=== PATIENT | male | born 1955 | race African-American/Black ===

== ENCOUNTER 2016-10-06 11:11 | Day surgery (SDC) | payer MEDICAID ==
[2016-09-29 12:48] LABS: HEMATOCRIT 35.2 % (37.9-51.0); HEMOGLOBIN 12.1 g/dL (13.5-17.0); HGB HCT DIFFERENCE 1.1; MEAN CORPUSCULAR HEMOGLOBIN 26.3 pg (27.0-33.4); MEAN CORPUSCULAR HGB CONC 34.4 g/dL (32.0-36.0); MEAN CORPUSCULAR VOLUME 77 fl (80-97); RED CELL DISTRIBUTION WIDTH 24.8 % (11.5-14.0); WHITE BLOOD COUNT 4.4 10^3/uL (4.0-10.5)
[2016-09-29 13:03] LABS: ANION GAP 13 (5-19); BLOOD UREA NITROGEN 11 mg/dL (7-20); CALCIUM 9.9 mg/dL (8.4-10.2); CARBON DIOXIDE 27 mmol/L (22-30); CHLORIDE 104 mmol/L (98-107); CREATININE RESULT 0.78 mg/dL (0.52-1.25); GLUCOSE 78 mg/dL (75-110); POTASSIUM 4.4 mmol/L (3.6-5.0); SODIUM 143.6 mmol/L (137-145)
[~2016-10-06 11:11] MED LIST: GLYCOPYRROLATE INJ 0.4 MG/2 ML VIAL ONE; LACTATED RINGERS 1000 ML IV PRN; LIDOCAINE 2% INJ-PF (20 MG/ML) 10 ML AMPUL ONE; METOCLOPRAMIDE HCL INJ/PF 10 MG/2 ML SDV ONE; METRONIDAZOLE 500 MG/NS RTU 100 ML IV PRN; ONDANSETRON HCL INJ/PF 4 MG/2 ML SDV ONE
[2016-10-06 11:55] LABS: PROTHROMBIN TIME 12.9 SEC (11.4-15.4)
[2016-10-06 11:56] LABS: PARTIAL THROMBOPLASTIN TIME 32.6 SEC (23.5-35.8)
[2016-10-06] MEDS ORDERED: BUPIVACAINE HCL 0.25 % INJ/PF (2.5 MG/1 ML) 30 ML VIAL ONE (12:38)
[2016-10-06] MEDS ORDERED: LIDOCAINE 0.5%/EPINEPHRINE INJ 50 ML VIAL ONE (12:39)
[2016-10-06] MEDS ORDERED: LIDOCAINE 2% JELLY 30 ML TUBE ONE (12:41)
[2016-10-06] MEDS ORDERED: PHENYLEPHRINE HCL 1 EACH SUPP.RECT PR ONE (12:41)
[2016-10-06] MEDS ORDERED: ALBUTEROL SULFATE 0.083% NEB 2.5 MG/3 ML AMPUL NEB ONE (13:24)
[2016-10-06 14:16] LABS: HEMATOCRIT 34.5 % (37.9-51.0); HEMOGLOBIN 11.5 g/dL (13.5-17.0); MEAN CORPUSCULAR HEMOGLOBIN 26.2 pg (27.0-33.4); MEAN CORPUSCULAR HGB CONC 33.2 g/dL (32.0-36.0); MEAN CORPUSCULAR VOLUME 79 fl (80-97); RED BLOOD COUNT 4.37 10^6/uL (4.35-5.55); WHITE BLOOD COUNT 5.3 10^3/uL (4.0-10.5)
[2016-10-06] MEDS ORDERED: FENTANYL CITRATE INJ/PF 100 MCG/2 ML AMPUL ONE (15:37)
[2016-10-06] MEDS ORDERED: MIDAZOLAM 2 MG/2 ML INJ ONE (15:38)
[2016-10-06] MEDS ORDERED: ACETAMINOPHEN 100 ML IV ONE (15:38)
[2016-10-06] MEDS ORDERED: PROPOFOL INJ 200 MG/20 ML VIAL IV ONE (15:38)
[2016-10-06] MEDS ORDERED: MEPERIDINE HCL/PF INJ 25 MG/1 ML DISP.SYRIN IV PRN (16:52)
[2016-10-06] MEDS ORDERED: DIPHENHYDRAMINE HCL 50 MG/ML VIAL IV PRN (16:52)
[2016-10-06] MEDS ORDERED: PROMETHAZINE HCL INJ 25 MG/1 ML VIAL IV PRN ×2 (16:52)
[2016-10-06] MEDS ORDERED: OXYCODONE-ACETAMINOPHEN 5-325 MG TABLET PO PRN ×2 (16:52)
[2016-10-06] MEDS ORDERED: MORPHINE SULFATE 10 MG/ML INJ IV PRN (16:52)
[2016-10-06] MEDS ORDERED: FENTANYL CITRATE INJ/PF 100 MCG/2 ML AMPUL IV PRN ×3 (16:52)
[2016-10-06] MEDS ORDERED: ONDANSETRON HCL INJ/PF 4 MG/2 ML SDV IV PRN (18:15)
[2016-10-06] MEDS: MORPHINE SULFATE 10 MG/ML INJ IV PRN (20:15)
[2016-10-06] MEDS: HYDROMORPHONE HCL INJ/PF 2 MG/ML AMPULE IV PRN (21:28)
[2016-10-06] MEDS: METOPROLOL TARTRATE 50 MG TABLET PO SCH (21:29)
[2016-10-07] MEDS: HYDROMORPHONE HCL INJ/PF 2 MG/ML AMPULE IV PRN ×2 (06:02→13:33)
[2016-10-07] MEDS: MORPHINE SULFATE 10 MG/ML INJ IV PRN (08:43)
[2016-10-07] MEDS ORDERED: MORPHINE SULFATE 10 MG/ML INJ IV PRN (08:50)
--- NOTE | 2016-10-07 08:54 | PDOC PROGRESS REPORT ---
Subjective Progress Note for:: 10/07/16 Subjective:: Feels well. Perianal pain under control on IV pain medication. Physical Exam Vital Signs: Temp Pulse Resp BP Pulse Ox 100.1 F 59 L 16 136/66 H 93 10/07/16 08:00 10/07/16 08:00 10/07/16 08:00 10/07/16 08:00 10/07/16 08:00 Intake & Output 10/06/16 10/07/16 10/08/16 06:59 06:59 06:59 Intake Total 4140 Output Total 725 Balance 3415 Weight 83.9 kg General appearance: PRESENT: no acute distress, cooperative Respiratory exam: PRESENT: clear to auscultation teofilo Cardiovascular exam: PRESENT: RRR GI/Abdominal exam: PRESENT: other - Soft nondistended nontender to palpation. Rectal exam: PRESENT: other - Perianal edema. Mild tenderness. No active bleeding. Results Laboratory Results: 10/06/16 11:37 09/29/16 11:40 10/06/16 11:37 WBC 5.3 RBC 4.37 Hgb 11.5 L Hct 34.5 L MCV 79 L MCH 26.2 L MCHC 33.2 RDW 25.0 H Plt Count 374 Assessment & Plan - Diagnosis (1) Internal prolapsed hemorrhoids Is this a current diagnosis for this admission?: YesPlan: Status post surgical hemorrhoidectomy. Patient looks reasonably well. Will keep him in the hospital in light of his the perianal edema and low-grade fever to make sure that it is improving prior to discharge. Will try to manage him with by mouth pain medication. Will DC his Arellano catheter. Advance his diet.
[2016-10-07] MEDS: DOCUSATE SODIUM 100 MG CAPSULE PO SCH ×2 (09:36→17:02)
[2016-10-07] MEDS: METOPROLOL TARTRATE 50 MG TABLET PO SCH (09:37)
[2016-10-07] MEDS ORDERED: (PENDING PHARMACY ID) (Fluticasone/Vilanterol [Breo Ellipta 100-25 Mcg Inh] 1 PUFF) PO SCH (10:00)
[2016-10-07] MEDS ORDERED: ASPIRIN 81 MG TABLET, CHEWABLE PO SCH (10:00)
[2016-10-07] MEDS: OXYCODONE HCL IR 5 MG TABLET PO PRN ×2 (11:11→17:03)
[2016-10-07 15:31] VITALS: BP 139/91
--- NOTE | 2016-10-07 17:51 | PDOC DISCHARGE SUMMARY ---
Discharge Summary (SDC) - Discharge Final Diagnosis: Right hip 2 cm cutaneous mass. Fibroepithelial polyp of the anus. 3 column prolapsing internal hemorrhoids. Date of Surgery: 10/06/16 Discharge Date: 10/06/16 Condition: Good Treatment or Instructions: Underwent the right hip cutaneous mass excision. Anal fibroepithelial polyp resection. 3 column surgical hemorrhoidectomy. May discharge patient home. Follow-up with me in a week and a half. Encourage ambulation at home. But avoid strenuous activity. Use ice pack to the perianal region for the next couple of days. Stay well-hydrated. Prescriptions: Oxycodone HCl/Acetaminophen [Percocet 10-325 Mg Tablet] 1 each PO Q4HP PRN #40 tablet PRN Reason: For Pain Scale 4-5 Docusate Sodium [Colace 100 mg Capsule] 100 mg PO BID #60 capsule Discharge Diet: Cardiac Discharge Activity: Activity As Tolerated - Stay active but avoid strenuous activity. Apply ice pack to the perianal region as needed for the next couple of days. Report the Following to Your Physician Immediately: Fever over 101 Degrees, Unusual Bleeding - Normal to experience small amounts of bleeding especially with bowel movements., Drainage-Foul Smelling Other Items to Report to MD: inability to urinate.
--- NOTE | 2016-10-07 17:53 | PDOC PROGRESS REPORT ---
Subjective Progress Note for:: 10/07/16 Subjective:: Feels well. Pain under good control. Patient is confident that he can get by with by mouth pain medication at home. He was to go home. He has been able to urinate. He has been ambulating without difficulty. Physical Exam Vital Signs: Temp Pulse Resp BP Pulse Ox 98.9 F 73 16 139/91 H 95 10/07/16 15:47 10/07/16 15:47 10/07/16 15:47 10/07/16 15:47 10/07/16 15:47 Intake & Output 10/06/16 10/07/16 10/08/16 06:59 06:59 06:59 Intake Total 4140 400 Output Total 725 Balance 3415 400 Weight 83.9 kg General appearance: PRESENT: no acute distress, cooperative Rectal exam: PRESENT: other - Still with perianal swelling but decreased from this morning. Mild tenderness. Minimal drainage. Results Laboratory Results: 10/06/16 11:37 09/29/16 11:40 Assessment & Plan - Diagnosis (1) Internal prolapsed hemorrhoids Is this a current diagnosis for this admission?: YesPlan: Status post surgical hemorrhoidectomy. Patient doing better this afternoon. He has less swelling than this morning. He is confident that he can manage his pain with by mouth pain medication. He is anxious to go home. We'll go and discharged patient home with follow-up the in a week and a half..
--- NOTE | 2016-10-07 17:57 | Operative Report ---
Operative Report DATE OF SURGERY: 10/06/16 PREOPERATIVE DIAGNOSIS: Anal skin tag. stage 3 internal hemorrhoids 3. 2 cm right hip cutaneous mass POSTOPERATIVE DIAGNOSIS: Fibroepithelial polyp. 3 column stage III internal hemorrhoids. 2 cm right hip cutaneous mass OPERATION: Excision of fibroepithelial polyp. Surgical hemorrhoidectomy 3. Right hip 2 centimeter cutaneous mass excision SURGEON: MATILDE WAGNER ANESTHESIA: Epidural TISSUE REMOVED OR ALTERED: Right sided fibroepithelial polyp. Right anterior hemorrhoidal complex. Right posterior hemorrhoidal complex. Left lateral hemorrhoidal complex. Right hip polypoid cutaneous mass COMPLICATIONS: None ESTIMATED BLOOD LOSS: 100 mL INTRAOPERATIVE FINDINGS: Firm densely scarred fibroepithelial polyp at the right perianal region measuring about 2.5 cm in size. Prolapsed three column internal hemorrhoids. 2 cm polypoid right hip cutaneous mass. PROCEDURE: Informed consent was obtained. Spinal anesthesia was produced. Patient was placed in a prone position. His right hip was prepped and draped in usual sterile fashion. At the lateral aspect of his right hip but there was a 2 cm protuberant skin mass. about 2 mm margins were taken around this mass excising portion of the subcutaneous fat along with the specimen. hemostasis was achieved with electrocautery. the wound was closed with interrupted nylon sutures. Dressings were applied. Patient's buttocks was taped apart. His perianal region was prepped and draped in usual sterile fashion. At his right perianal region there was a very firm polypoid mass which felt fixed to the underlying tissue. Local anesthetic with the epinephrine was injected. This mass was excised although its deeper attachments had to be transected. Due to the atypical feel of this mass it was submitted for frozen section. Frozen section was remarkable for findings consistent with fibroepithelial polyp. With this finding I proceeded on with the surgical hemorrhoidectomy. Patient had the thickening of the anoderm with prolapsed 3 column internal hemorrhoids. Portion of the anoderm was taken along with the the hemorrhoidal complex. The right posterior hemorrhoidal complex was taken first. There appeared to be quite a bit of fibrotic reaction. Dissection was intially performed sharply with Metzenbaum scissors staying superficial to the internal anal sphincter. The hemorrhoidal complex was taken using the LigaSure for hemostasis. The defect was closed with running chromic suture with the anoderm partially left open. Identical procedure was performed at the left lateral hemorrhoidal complex followed by the right anterior hemorrhoidal complex. Hemostasis appeared to be good. Patient tolerated procedure well with no apparent complications and was taken to the recovery area in stable condition.
[2016-10-07] MEDS ORDERED: ATORVASTATIN CALCIUM 10 MG TABLET PO SCH (22:00)
== END 2016-10-07 18:57 | disposition home or self-care (01) ==
LOC: OROUT 11:11 → 5 19:15 → OROUT 10-07 18:57
PROVIDERS: ATTEND Surgery
PROC: 0DBQXZX Excision of Anus, External Approach, Diagnostic (ICD-10-PCS; 2016-10-06)
PROC: 06BY0ZC Excision of Hemorrhoidal Plexus, Open Approach (ICD-10-PCS; principal; 2016-10-06 13:30)
PROC: 0HBHXZZ Excision of Right Upper Leg Skin, External Approach (ICD-10-PCS; 2016-10-06 13:30)
DX: K64.2 Third degree hemorrhoids (principal); K62.0 Anal polyp; D23.71 Other benign neoplasm of skin of right lower limb, including hip; J44.9 Chronic obstructive pulmonary disease, unspecified; I10 Essential (primary) hypertension; Z95.5 Presence of coronary angioplasty implant and graft; Z87.891 Personal history of nicotine dependence; Z79.82 Long term (current) use of aspirin; Z79.51 Long term (current) use of inhaled steroids
CPT/HCPCS: 36415 ×2; 85027 ×2; 85610; 85730; 80048; 88304 ×2; 88331 ×2; 46999; 11402; 46922; J3490 ×9; J2250; J3010; J2765; J2270 ×2; J1170 ×2; J2405; J7120; J2704; J0131; 902

== ENCOUNTER 2016-10-17 13:44 | Inpatient (IN) | payer MEDICAID ==
[2016-10-17] MEDS ORDERED: NORMAL SALINE 1000 ML 1,000 ML IV PRN (13:57)
[2016-10-17 14:31] LABS: ABSOLUTE BASOPHILS # (AUTO) 0.1 10^3/uL (0.0-0.2); ABSOLUTE EOSINOPHILS # (AUTO) 0.1 10^3/uL (0.0-0.6); ABSOLUTE LYMPHOCYTES (AUTO) 1.2 10^3/uL (0.5-4.7); ABSOLUTE MONOCYTES (AUTO) 0.5 10^3/uL (0.1-1.4); ABSOLUTE NEUT (AUTO) 7.2 10^3/uL (1.7-8.2); BASOPHILS % (AUTO) 1.1 % (0-2); EOSINOPHILS % (AUTO) 0.6 % (0-6); HEMATOCRIT 23.6 % (37.9-51.0); HGB HCT DIFFERENCE 0.4; LYMPHOCYTES % (AUTO) 12.8 % (13-45); MEAN CORPUSCULAR HEMOGLOBIN 27.1 pg (27.0-33.4); MEAN CORPUSCULAR VOLUME 80 fl (80-97); MONOCYTES % (AUTO) 5.1 % (3-13); RED BLOOD COUNT 2.97 10^6/uL (4.35-5.55); RED CELL DISTRIBUTION WIDTH 25.1 % (11.5-14.0); SEGMENTED NEUTROPHILS % (AUTO) 80.4 % (42-78)
[2016-10-17 14:52] LABS: ANISOCYTOSIS 3+; BURR CELLS SLIGHT; HELMET CELLS SLIGHT; HYPOCHROMASIA 1+; MICROCYTOSIS 1+; OVALOCYTES SLIGHT; POIKILOCYTOSIS 3+; POLYCHROMASIA SLIGHT; TARGET CELLS SLIGHT; TEAR DROP CELLS SLIGHT
[2016-10-17 14:53] LABS: ALANINE AMINOTRANSFERASE 18 U/L (21-72); ALBUMIN 3.6 g/dL (3.5-5.0); ALKALINE PHOSPHATASE 68 U/L (38-126); ANION GAP 11 (5-19); ASPARTATE AMINO TRANSFERASE 18 U/L (17-59); BILIRUBIN,DIRECT 0.1 mg/dL (0.0-0.4); BILIRUBIN,TOTAL 0.4 mg/dL (0.2-1.3); BLOOD UREA NITROGEN 9 mg/dL (7-20); CALCIUM 8.7 mg/dL (8.4-10.2); CARBON DIOXIDE 26 mmol/L (22-30); CHLORIDE 105 mmol/L (98-107); CREATININE RESULT 0.87 mg/dL (0.52-1.25); GLUCOSE 159 mg/dL (75-110); POTASSIUM 3.3 mmol/L (3.6-5.0); SODIUM 142.2 mmol/L (137-145)
[2016-10-17] MEDS ORDERED: NORMAL SALINE 250 ML IV PRN ×2 (15:02)
--- NOTE | 2016-10-17 15:04 | ER Document Report ---
ED General - General Chief Complaint: Rectal Bleeding Stated Complaint: RECTAL BLEEDING Mode of Arrival: Medic Information source: Patient Notes: 61-year-old male history of hemorrhoid surgery performed 11 days prior by on effiant aspirin for stents presents with heavy rectal bleeding today with lightheadedness and dizziness. TRAVEL OUTSIDE OF THE [place] IN LAST 30 DAYS: No - HPI Onset: This morning Onset/Duration: Sudden Quality of pain: No pain Severity: Moderate Pain Level: Denies Associated symptoms: Weakness Exacerbated by: Denies Relieved by: Denies Similar symptoms previously: Yes Recently seen / treated by doctor: Yes - Related Data Allergies/Adverse Reactions: No Known Allergies Allergy (Verified 09/29/16 11:09) Past Medical History - Social History Smoking Status: Never Smoker Cigarette use (# per day): No Chew tobacco use (# tins/day): No Smoking Education Provided: No Family History: Reviewed & Not Pertinent - Past Medical History Cardiac Medical History: Reports: Hx Coronary Artery Disease - 2011 HEART STENTS , Hx Hypercholesterolemia, Hx Hypertension Denies: Hx Heart Attack Pulmonary Medical History: Reports: Hx COPD Denies: Hx Asthma, Hx Bronchitis, Hx Pneumonia, Hx Tuberculosis Neurological Medical History: Denies: Hx Cerebrovascular Accident, Hx Seizures Musculoskeltal Medical History: Denies Hx Arthritis Past Surgical History: Reports: Hx Cardiac Surgery - cardiac stents, Hx Coronary Stent. Denies: Hx Pacemaker - Immunizations Hx Diphtheria, Pertussis, Tetanus Vaccination: Yes Review of Systems - Review of Systems Notes: REVIEW OF SYSTEMS: CONSTITUTIONAL : Denies fever, chills, or sweats. Denies recent illness. EENT: Denies eye, ear, throat, or mouth pain or symptoms. Denies nasal or sinus congestion or discharge. Denies throat, tongue, or mouth swelling or difficulty swallowing. CARDIOVASCULAR: Denies chest pain. Denies palpitations or racing or irregular heart beat. Denies ankle edema. RESPIRATORY: Denies cough, cold, or chest congestion. Denies shortness of breath, difficulty breathing, or wheezing. GASTROINTESTINAL: Hemorrhoids with rectal bleeding GENITOURINARY: Denies difficulty urinating, painful urination, burning, frequency, blood in urine, or discharge. MUSCULOSKELETAL: Denies back or neck pain or stiffness. Denies joint pain or swelling. SKIN: Denies rash, lesions or sores. HEMATOLOGIC : Denies easy bruising or bleeding. LYMPHATIC: Denies swollen, enlarged glands. NEUROLOGICAL: Denies confusion or altered mental status. Denies passing out or loss of consciousness. Denies dizziness or lightheadedness. Denies headache. Denies weakness or paralysis or loss of use of either side. Denies problems with gait or speech. Denies sensory loss, numbness, or tingling. Denies seizures. PSYCHIATRIC: Denies anxiety or stress. Denies depression, suicidal ideation, or homicidal ideation. ALL OTHER SYSTEMS REVIEWED AND NEGATIVE. Dictation was performed using [employer] voice recognition software PHYSICAL EXAMINATION: GENERAL: Well-appearing, well-nourished and in no acute distress. HEAD: Atraumatic, normocephalic. EYES: Pupils equal round and reactive to light, extraocular movements intact, sclera anicteric, conjunctiva are normal. ENT: Nares patent, oropharynx clear without exudates. Moist mucous membranes. NECK: Normal range of motion, supple without lymphadenopathy LUNGS: Breath sounds clear to auscultation bilaterally and equal. No wheezes rales or rhonchi. HEART: Tachycardic ABDOMEN: Soft, nontender, nondistended abdomen. No guarding, no rebound. No masses appreciated. Musculoskeletal: Normal range of motion, no pitting or edema. No cyanosis. Extensive external hemorrhoids noted no active bleeding NEUROLOGICAL: Cranial nerves grossly intact. Normal speech, normal gait. Normal sensory, motor exams PSYCH: Normal mood, normal affect. SKIN: Warm, Dry, normal turgor, no rashes or lesions noted. Physical Exam - Vital signs Vitals: Temp Pulse Resp BP Pulse Ox 98.4 F 113 H 21 H 113/84 96 10/17/16 13:54 10/17/16 13:54 10/17/16 13:54 10/17/16 13:54 10/17/16 13:54 Course - Re-evaluation Re-evalutation: 10/17/16 15:03 Dr Hector yeboah, will admit and transfuse 10/17/16 15:06 Patient is noted to be tachycardic and hypotensive, fluids have been ordered as well as blood. Patient is on metoprolol which I believe is masking how tachycardic he truly is, will transfuse 2 untis isnce he lost 3.5 units in 1 week 10/17/16 15:35 - Vital Signs Vital signs: Temp Pulse Resp BP Pulse Ox 98.4 F 113 H 21 H 113/84 96 10/17/16 13:54 10/17/16 13:54 10/17/16 13:54 10/17/16 13:54 10/17/16 13:54 - Laboratory Result Diagrams: 10/17/16 14:00 10/17/16 14:00 Laboratory results interpreted by me: 10/17/16 10/17/16 10/17/16 14:00 14:00 14:35 RBC 2.97 L Hgb 8.0 L Hct 23.6 L RDW 25.1 H Seg Neutrophils % 80.4 H Lymphocytes % 12.8 L Potassium 3.3 L Glucose 159 H ALT 18 L Crossmatch See Detail Critical Care Note - Critical Care Note Total time excluding time spent on procedures (mins): 35 Comments: 35 minutes of critical care time spent in direct contact evaluating and reevaluating the patient, treating symptoms, reviewing labs and studies and speaking with family and consultants excluding any procedures Discharge - Discharge Clinical Impression: Rectal bleeding, Anemia, blood loss, Tachycardia Condition: Stable Admitting Provider: Surgicalist Unit Admitted: Telemetry Referrals: JUSTEN WHEELER MD [Primary Care Provider] - Follow up as needed
[2016-10-17] MEDS ORDERED: LIDOCAINE 2% JELLY 5 ML TUBE ONE (18:34)
--- NOTE | 2016-10-17 18:57 | PDOC H&P ---
History of Present Illness Admission Date/PCP: 10/17/16 18:28 JUSTEN WHEELER MD Patient complains of: Rectal bleeding History of Present Illness: LESIA FREGOSO is a 61 year old male is brought to the emergency department by ground rescue because of acute onset bleeding earlier this morning after having a painful hard bowel movement. Patient is 11 days status post 3 compartment hemorrhoidectomy and removal of fibroepithelial polyp by Dr. Alli Vivas and Replaced By [facility]. Patient's immediate postoperative course was uneventful. He has had bleeding intermittently since then and only loose bowel movements. He was not seen postoperatively in the clinic yet. He was seen in emergency department where he was found to be tachycardic and transiently hypotensive. His hemoglobin had dropped 3 g over the last 10 days so he was started on blood transfusions 2. Of note the patient has a history of coronary artery disease, with stents, on 10 A inhibitor and aspirin. Patient states he is feeling better. Past Medical History Cardiac Medical History: Reports: Coronary Artery Disease - 2010 HEART STENTS, Hyperlipidema, Hypertension Denies: Myocardial Infarction Pulmonary Medical History: Reports: Chronic Obstructive Pulmonary Disease (COPD) Denies: Asthma, Bronchitis, Pneumonia, Tuberculosis Neurological Medical History: Denies: Seizures Musculoskeltal Medical History: Denies: Arthritis Hematology: Reports: Anemia Past Surgical History Past Surgical History: Reports: Coronary Stent, Other - 3 compartment hemorrhoidectomy with removal of fibroepithelial polyp 11 day Denies: Pacemaker Social History Smoking Status: Never Smoker Frequency of Alcohol Use: None Hx Recreational Drug Use: No Drugs: Marijuana Hx Prescription Drug Abuse: No Family History Family History: Reviewed & Not Pertinent Parental Family History Reviewed: Yes Children Family History Reviewed: Yes Sibling(s) Family History Reviewed.: Yes Medication/Allergy Home Medications: Aspirin [Adult Low Dose Aspirin EC] 81 mg PO DAILY 10/17/16 Cetirizine HCl [Zyrtec 10 mg Tablet] 10 mg PO DAILY 10/17/16 Ferrous Sulfate [Feosol 325 mg Tablet] 325 mg PO DAILY 10/17/16 Fluticasone/Vilanterol [Breo Ellipta 100-25 Mcg INH] 1 puff IH DAILY 10/17/16 Metoprolol Tartrate [Lopressor 50 mg Tablet] 50 mg PO Q12 10/17/16 Prasugrel Hydrochloride [Effient] 10 mg PO DAILY 10/17/16 Pravastatin Sodium [Pravachol] 20 mg PO DAILY 10/17/16 Allergies/Adverse Reactions: No Known Allergies Allergy (Verified 10/17/16 15:34) Physical Exam Vital Signs: Temp Pulse Resp BP Pulse Ox 98.3 F 107 H 18 118/88 H 98 10/17/16 17:22 10/17/16 17:22 10/17/16 17:22 10/17/16 17:22 10/17/16 17:22 General appearance: PRESENT: mild distress Head exam: PRESENT: normocephalic Eye exam: PRESENT: EOMI Ear exam: PRESENT: normal external ear exam Neck exam: PRESENT: full ROM Respiratory exam: PRESENT: rales Cardiovascular exam: PRESENT: RRR GI/Abdominal exam: PRESENT: diminished bowel sounds, other - No distention no peritoneal signs no rigidity Rectal exam: PRESENT: other - Patient rolled in the left lateral decubitus position; 2% lidocaine jelly applied to the external tissue which consisted of multiple wall redundant perianal skin clusters in area of left perianal consistent with postoperative addition. Pinky finger inserted into anal canal to ensure patency. Some discomfort encountered, but no obstruction. Extremities exam: PRESENT: full ROM Results Status: Image reviewed by me Assessment & Plan - Diagnosis (1) Status post hemorrhoidectomy Is this a current diagnosis for this admission?: YesPlan: 1. Patient is 11 days status post operative hemorrhoidectomy, removal of fibroepithelial polyp, now with postoperative bleeding, perianal pain, and operative swelling. He is clinically improved since treatment in the emergency department. 2. Will admit patient for observation, keep on liquid diet, increased fiber, increased stool softener. 3. Anticipate discharge over the next 18-24 hours. (2) Anemia, blood loss Is this a current diagnosis for this admission?: YesPlan: 1. Planned blood loss likely secondary to mechanical bleeding from postoperative site, exacerbated by 10 A inhibitor and aspirin ;Patient receiving first 2 units RBCs, with improvement in hemodynamic parameters. Patient states he has had a colonoscopy in the past with unremarkable findings. (3) Anticoagulant long-term use Is this a current diagnosis for this admission?: YesPlan: Will hold Effient and aspirin for now (4) Marijuana smoker Is this a current diagnosis for this admission?: Yes (5) Stented coronary artery Is this a current diagnosis for this admission?: YesPlan: No evidence of acute coronary syndrome. - Time Time Spent: 50 to 70 Minutes Critical Time spent with patient: Less than 15 minutes Medications reviewed and adjusted accordingly: Yes Anticipated discharge: Home - Inpatient Certification Based on my medical assessment, after consideration of the patient's comorbidities, presenting symptoms, or acuity I expect that the services needed warrant INPATIENT care.: Yes I certify that my determination is in accordance with my understanding of Medicare's requirements for reasonable and necessary INPATIENT services [42 CFR 412.3e].: Yes Medical Necessity: Failure to Improve With Outpatient Therapy, Need For IV Fluids, Need for Pain Control
[2016-10-17] MEDS ORDERED: LIDOCAINE 5% OINTMENT 35.44 GM TP ONE (19:00)
[2016-10-17] MEDS ORDERED: KETOROLAC TROMETHAMINE INJ/PF 30 MG/1 ML SDV IV PRN (19:00)
[2016-10-17] MEDS ORDERED: POTASSI CL 20 MEQ/D5LR 1L 1,000 ML IV PRN (19:02)
[2016-10-18 08:01] LABS: ABSOLUTE BASOPHILS # (AUTO) 0.1 10^3/uL (0.0-0.2); ABSOLUTE LYMPHOCYTES (AUTO) 1.2 10^3/uL (0.5-4.7); ABSOLUTE MONOCYTES (AUTO) 0.9 10^3/uL (0.1-1.4); ABSOLUTE NEUT (AUTO) 6.9 10^3/uL (1.7-8.2); BASOPHILS % (AUTO) 0.7 % (0-2); EOSINOPHILS % (AUTO) 0.3 % (0-6); HEMATOCRIT 21.9 % (37.9-51.0); HGB HCT DIFFERENCE 0.6; LYMPHOCYTES % (AUTO) 13.4 % (13-45); MEAN CORPUSCULAR HEMOGLOBIN 27.9 pg (27.0-33.4); MEAN CORPUSCULAR HGB CONC 34.3 g/dL (32.0-36.0); MEAN CORPUSCULAR VOLUME 81 fl (80-97); MONOCYTES % (AUTO) 9.8 % (3-13); RED BLOOD COUNT 2.69 10^6/uL (4.35-5.55); RED CELL DISTRIBUTION WIDTH 20.6 % (11.5-14.0); SEGMENTED NEUTROPHILS % (AUTO) 75.8 % (42-78); WHITE BLOOD COUNT 9.1 10^3/uL (4.0-10.5)
[2016-10-18 08:27] LABS: ANISOCYTOSIS 2+; HYPOCHROMASIA SLIGHT; POIKILOCYTOSIS 2+; POLYCHROMASIA SLIGHT
[2016-10-18 08:28] LABS: HELMET CELLS SLIGHT; OVALOCYTES 1+; TEAR DROP CELLS SLIGHT
[2016-10-18 08:31] LABS: HEMOGLOBIN 7.5 g/dL (13.5-17.0)
[2016-10-18] MEDS ORDERED: GLUCAGON,HUMAN RECOMB 1 MG INJ SUBCUT PRN (09:12)
[2016-10-18] MEDS ORDERED: DEXTROSE 40% GEL 15 GM TUBE PO PRN ×2 (09:12)
[2016-10-18] MEDS ORDERED: DEXTROSE 50%-WATER 25 GM/50 ML DISP.SYRIN IV PRN ×2 (09:12)
[2016-10-18] MEDS ORDERED: NORMAL SALINE 250 ML IV PRN ×2 (09:14)
[2016-10-18] MEDS ORDERED: (PENDING PHARMACY ID) (Fluticasone/Vilanterol [Breo Ellipta 100-25 Mcg Inh] 1 PUFF) IH SCH (10:00)
[2016-10-18] MEDS ORDERED: CETIRIZINE 10 MG TABLET PO SCH (10:00)
[2016-10-18 10:05] LABS: PARTIAL THROMBOPLASTIN TIME 33.5 SEC (23.5-35.8); PROTHROMBIN TIME 15.2 SEC (11.4-15.4)
[2016-10-18] MEDS: DOCUSATE SODIUM 100 MG CAPSULE PO SCH ×2 (10:07→17:32)
--- NOTE | 2016-10-18 10:27 | PDOC PROGRESS REPORT ---
Subjective Progress Note for:: 10/18/16 Subjective:: Patient says he feels better; minimal blood per anus. Clear liquids. Physical Exam Vital Signs: Temp Pulse Resp BP Pulse Ox 98.2 F 80 16 119/67 97 10/18/16 10:00 10/18/16 10:00 10/18/16 10:00 10/18/16 10:00 10/18/16 10:00 Intake & Output 10/17/16 10/18/16 10/19/16 06:59 06:59 06:59 Intake Total 700 620 Balance 700 620 Weight 79.5 kg General appearance: PRESENT: no acute distress GI/Abdominal exam: PRESENT: other - Somewhat firm, but not distended. Results Laboratory Results: 10/18/16 07:43 10/18/16 07:43 WBC 9.1 RBC 2.69 L Hgb 7.5 L Hct 21.9 L MCV 81 MCH 27.9 MCHC 34.3 RDW 20.6 H Plt Count 273 Seg Neutrophils % 75.8 Lymphocytes % 13.4 Monocytes % 9.8 Eosinophils % 0.3 Basophils % 0.7 Absolute Neutrophils 6.9 Absolute Lymphocytes 1.2 Absolute Monocytes 0.9 Absolute Eosinophils 0.0 Absolute Basophils 0.1 Assessment & Plan - Diagnosis (1) Status post hemorrhoidectomy Is this a current diagnosis for this admission?: YesPlan: 1. Doing better however fusion hemoglobin down to 7.5. Suspect patient was dehydrated on admission, and admission hemoglobin of 8.5 was falsely elevated. We will transfuse him 2 more units of packed red blood cells. 2. Although patient's bleeding likely from operative site, cannot rule out occult GI bleed. Didn't underwent EGD and colonoscopy by Dr. Jimenez February 2015 with findings of gastritis and hemorrhoids; he was Helicobacter pylori positive. I suggested we repeat his EGD today. We will keep him in 3 and set this up for later today 3. I have asked Dr. Plummer, hospitalist, to assist with medical management. (2) Anemia, blood loss Is this a current diagnosis for this admission?: Yes (3) Anticoagulant long-term use Is this a current diagnosis for this admission?: Yes (4) Marijuana smoker Is this a current diagnosis for this admission?: Yes (5) Stented coronary artery Is this a current diagnosis for this admission?: Yes
[2016-10-18 10:43] LABS: ANION GAP 9 (5-19); BLOOD UREA NITROGEN 10 mg/dL (7-20); CALCIUM 8.3 mg/dL (8.4-10.2); CARBON DIOXIDE 23 mmol/L (22-30); CHLORIDE 107 mmol/L (98-107); CREATININE RESULT 0.76 mg/dL (0.52-1.25); GLUCOSE 127 mg/dL (75-110); POTASSIUM 3.8 mmol/L (3.6-5.0); SODIUM 139.2 mmol/L (137-145)
[2016-10-18] MEDS ORDERED: ONDANSETRON HCL INJ/PF 4 MG/2 ML SDV ONE (15:04)
[2016-10-18] MEDS ORDERED: GLYCOPYRROLATE INJ 0.4 MG/2 ML VIAL ONE (15:05)
[2016-10-18] MEDS ORDERED: NALOXONE HCL INJ/PF 0.4 MG/1 ML SDV ONE (15:05)
[2016-10-18] MEDS ORDERED: GLUCAGON,HUMAN RECOMB 1 MG INJ ONE (15:06)
[2016-10-18] MEDS ORDERED: FLUMAZENIL INJ 0.5 MG/5 ML VIAL IV ONE (15:06)
[2016-10-18] MEDS ORDERED: EPINEPHRINE INJ 1 MG/10 ML DISP.SYRIN ONE (15:06)
[2016-10-18] MEDS: MIDAZOLAM 2 MG/2 ML INJ ONE ×3 (15:25→15:33)
[2016-10-18] MEDS: FENTANYL CITRATE INJ/PF 100 MCG/2 ML AMPUL ONE ×2 (15:27→15:31)
--- NOTE | 2016-10-18 15:50 | PDOC CONSULTATION ---
Consultation Consult Date: 10/18/16 Attending physician:: MING BENITO Consult reason:: COPD management ,and h/o CAD History of Present Illness Admission Date/PCP: 10/17/16 18:58 JUSTEN WHEELER MD History of Present Illness: Patient 61-year-old male with history of chronic obstructive pulmonary disease, coronary artery disease status post insertion of stent about 4 years ago still on dual antiplatelet agent he came to emergency room yesterday because of acute onset lower GI bleed after a painful hard bowel movement. Patient is status post hemorrhoidectomy about 11 days ago patient was admitted postoperative because was uneventful, he has had bleeding intermittently since then emergency room he was seen he was found to be hypotensive with tachycardia he was transfused with 2 units of packed red blood cells. Medicine was consulted for management of COPD and coronary artery disease. I saw him on the floor today and is not overly in distress, he had insertion of coronary stent about 4 years ago and is still on dual antiplatelet agent, he probably could, come off 1 of the antiplatelet agent, there is no advantage taking two antiplatelet agents after 12 months of insertion of a drug eluting stent which I assume that is what was inserted in this case, I am not sure if he had a bare metal stent insertion. He stated that he stop smoking couple of months ago, on auscultation of his lung he was wheezing on both lung benson, the nurses told me that he is scheduled for EGD this afternoon Past Medical History Cardiac Medical History: Reports: Coronary Artery Disease - 2010 HEART STENTS, Hyperlipidema, Hypertension Pulmonary Medical History: Reports: Chronic Obstructive Pulmonary Disease (COPD) Musculoskeltal Medical History: Denies: Arthritis Hematology: Reports: Anemia Past Surgical History Past Surgical History: Reports: Coronary Stent, Other - 3 compartment hemorrhoidectomy with removal of fibroepithelial polyp 11 day Social History Smoking Status: Former Smoker Last Time Smoked: June 1999 Frequency of Alcohol Use: None Hx Recreational Drug Use: No Drugs: Marijuana Hx Prescription Drug Abuse: No - Advance Directive Resuscitation Status: Full Code Family History Family History: Reviewed & Not Pertinent Parental Family History Reviewed: Yes Children Family History Reviewed: Yes Sibling(s) Family History Reviewed.: Yes Medication/Allergy Home Medications: Aspirin [Adult Low Dose Aspirin EC] 81 mg PO DAILY 10/17/16 Cetirizine HCl [Zyrtec 10 mg Tablet] 10 mg PO DAILY 10/17/16 Ferrous Sulfate [Feosol 325 mg Tablet] 325 mg PO DAILY 10/17/16 Fluticasone/Vilanterol [Breo Ellipta 100-25 Mcg INH] 1 puff IH DAILY 10/17/16 Metoprolol Tartrate [Lopressor 50 mg Tablet] 50 mg PO Q12 10/17/16 Prasugrel Hydrochloride [Effient] 10 mg PO DAILY 10/17/16 Pravastatin Sodium [Pravachol] 20 mg PO DAILY 10/17/16 Allergies/Adverse Reactions: No Known Allergies Allergy (Verified 10/17/16 15:34) Review of Systems Constitutional: ABSENT: chills, fever(s), headache(s), weight gain, weight loss Eyes: ABSENT: visual disturbances Ears: ABSENT: hearing changes Cardiovascular: PRESENT: dyspnea on exertion Respiratory: PRESENT: cough, dyspnea Gastrointestinal: PRESENT: hematochezia Genitourinary: ABSENT: dysuria, hematuria Musculoskeletal: ABSENT: joint swelling Integumentary: ABSENT: rash, wounds Neurological: ABSENT: abnormal gait, abnormal speech, confusion, dizziness, focal weakness, syncope Psychiatric: ABSENT: anxiety, depression, homidical ideation, suicidal ideation Endocrine: ABSENT: cold intolerance, heat intolerance, menstrual abnormalities, polydipsia, polyuria Hematologic/Lymphatic: ABSENT: easy bleeding, easy bruising, lymphadenopathy Physical Exam Vital Signs: Temp Pulse Resp BP Pulse Ox 98.5 F 75 25 H 139/94 H 94 10/18/16 14:12 10/18/16 15:30 10/18/16 15:30 10/18/16 15:30 10/18/16 15:30 Intake & Output 10/17/16 10/18/16 10/19/16 06:59 06:59 06:59 Intake Total 700 620 Balance 700 620 Weight 79.5 kg General appearance: PRESENT: no acute distress, well-developed, well-nourished Head exam: PRESENT: atraumatic, normocephalic Eye exam: PRESENT: conjunctiva pink, EOMI, PERRLA Ear exam: PRESENT: normal external ear exam Mouth exam: PRESENT: moist, tongue midline Neck exam: PRESENT: full ROM Respiratory exam: PRESENT: wheezes Cardiovascular exam: PRESENT: RRR, +S1, +S2 Pulses: PRESENT: normal dorsalis pedis pul, +2 pedal pulses bilateral Vascular exam: PRESENT: normal capillary refill GI/Abdominal exam: PRESENT: normal bowel sounds, soft. ABSENT: distended, guarding, mass, organolmegaly, rebound, tenderness Rectal exam: PRESENT: deferred Neurological exam: PRESENT: alert, awake, oriented to person, oriented to place , oriented to time, oriented to situation, CN II-XII grossly intact Psychiatric exam: PRESENT: appropriate affect, normal mood Skin exam: PRESENT: dry, intact, warm Results Laboratory Results: 10/18/16 07:43 10/18/16 07:43 10/18/16 10/18/16 07:43 07:43 WBC 9.1 RBC 2.69 L Hgb 7.5 L Hct 21.9 L MCV 81 MCH 27.9 MCHC 34.3 RDW 20.6 H Plt Count 273 Seg Neutrophils % 75.8 Lymphocytes % 13.4 Monocytes % 9.8 Eosinophils % 0.3 Basophils % 0.7 Absolute Neutrophils 6.9 Absolute Lymphocytes 1.2 Absolute Monocytes 0.9 Absolute Eosinophils 0.0 Absolute Basophils 0.1 Sodium 139.2 Potassium 3.8 Chloride 107 Carbon Dioxide 23 Anion Gap 9 BUN 10 Creatinine 0.76 Est GFR ( Amer) > 60 Est GFR (Non-Af Amer) > 60 Glucose 127 H Calcium 8.3 L Assessment & Plan - Diagnosis (1) Chronic obstructive pulmonary disease with (acute) exacerbation Is this a current diagnosis for this admission?: YesPlan: He has a history of chronic obstructive lung disease presently with acute exacerbation, CT chest of the lung without contrast was ordered, he be treated with Solu-Medrol 125 mg IV every 8, DuoNeb nebulizer daily as needed (2) Coronary artery disease Qualifiers: Coronary Disease-Associated Artery/Lesion type: unspecified vessel or lesion type [place] vs. transplanted heart: [place] heart Associated angina: without angina Qualified Code(s): I25.10 - Atherosclerotic heart disease of [place] coronary artery without angina pectoris Is this a current diagnosis for this admission?: Yes (3) Rectal bleeding Is this a current diagnosis for this admission?: YesPlan: He was admitted because of rectal bleed I would not immediately start the antiplatelet, he was also transfused with packed red blood cells (4) Status post hemorrhoidectomy Is this a current diagnosis for this admission?: Yes (5) Hyperlipidemia Qualifiers: Hyperlipidemia type: pure hypercholesterolemia Qualified Code(s): E78.00 - Pure hypercholesterolemia, unspecified; E78.0 - Pure hypercholesterolemia (6) Marijuana smoker Is this a current diagnosis for this admission?: Yes (7) Stented coronary artery Is this a current diagnosis for this admission?: Yes (8) Tobacco use disorder Is this a current diagnosis for this admission?: Yes
[2016-10-18] MEDS ORDERED: METHYLPREDNISOLONE INJ 125 MG/2 ML SDV IV ONE (16:00)
[2016-10-18] MEDS ORDERED: IPRATROPIUM/ALBUTEROL 0.5-2.5 MG/3 ML AMPUL NEB PRN ×2 (16:25→20:03)
--- NOTE | 2016-10-18 16:33 | OPERATIVE REPORT E ---
Operative Report NAME: LESIA FREGOSO : 1955 AGE: 61Y DATE OF SURGERY: 10/18/2016 ROOM: 532 PREOPERATIVE DIAGNOSES: 1. Status post hemorrhoidectomy. 2. Lower GI bleed. 3. Anemia. POSTOPERATIVE DIAGNOSIS: Essentially unremarkable EGD; mild gastritis. OPERATION: Esophagogastroduodenoscopy with gastric antral biopsy. SURGEON: MING BENITO M.D. ANESTHESIA: IV sedation. COMPLICATIONS: None. ESTIMATED BLOOD LOSS: Minimal. DRAINS: None. TISSUE REMOVED OR ALTERED: Antral mucosal biopsy. DESCRIPTION OF PROCEDURE: Patient was brought from the 5th floor to the endoscopy suite where monitoring devices were hooked up. He was placed in the semirecumbent position and conscious sedation was induced. The surgical plan and a surgical timeout were conducted. The flexible adult upper endoscope was advanced through the hypopharynx, through the esophagus, through the stomach, and into the duodenum. This was an excellent study and well tolerated by the patient. The duodenum was essentially normal. The scope was brought back through the pylorus which was normal. The greater curvature of the stomach and the antrum showed mild inflammatory changes. Biopsy taken for ANGUS and histology. The rest of the esophagus was unremarkable. There was a small hiatal hernia. The scope was back through the GE junction which was at about 38 cm from the incisor. The esophagus was grossly unremarkable. Throughout the entire procedure, there was no evidence of clot or bleeding. The scope was back through the rest of the esophagus. No other pathology seen. The patient tolerated the procedure well and recovery instructions provided to the nursing staff. DICTATING PHYSICIAN: MING BENITO M.D. [id number] PHY#: [id number] ID: [id number] JOB#: [id number] ACCT: [id number] cc:MING BENITO M.D. > [facility] AND MEDICAL CENTERFay
[2016-10-18] MEDS ORDERED: IPRATROPIUM/ALBUTEROL 0.5-2.5 MG/3 ML AMPUL NEB SCH (17:00)
[2016-10-18] MEDS ORDERED: ATORVASTATIN CALCIUM 10 MG TABLET PO SCH (22:00)
[2016-10-18] MEDS: METHYLPREDNISOLONE INJ 125 MG/2 ML SDV IV SCH (23:01)
[2016-10-19] MEDS: METHYLPREDNISOLONE INJ 125 MG/2 ML SDV IV SCH (05:58)
[2016-10-19 06:18] LABS: ABSOLUTE LYMPHOCYTES (AUTO) 0.7 10^3/uL (0.5-4.7); ABSOLUTE MONOCYTES (AUTO) 0.1 10^3/uL (0.1-1.4); ABSOLUTE NEUT (AUTO) 5.9 10^3/uL (1.7-8.2); BASOPHILS % (AUTO) 0.4 % (0-2); HEMATOCRIT 27.1 % (37.9-51.0); LYMPHOCYTES % (AUTO) 10.4 % (13-45); MEAN CORPUSCULAR HEMOGLOBIN 28.4 pg (27.0-33.4); MEAN CORPUSCULAR HGB CONC 35.6 g/dL (32.0-36.0); MEAN CORPUSCULAR VOLUME 80 fl (80-97); MONOCYTES % (AUTO) 1.8 % (3-13); RED CELL DISTRIBUTION WIDTH 18.9 % (11.5-14.0); SEGMENTED NEUTROPHILS % (AUTO) 87.4 % (42-78); WHITE BLOOD COUNT 6.7 10^3/uL (4.0-10.5)
[2016-10-19 06:59] LABS: HEMOGLOBIN 9.7 g/dL (13.5-17.0)
[2016-10-19 07:02] LABS: ANISOCYTOSIS 2+; OVALOCYTES 1+; POIKILOCYTOSIS 1+; POLYCHROMASIA 1+; SCHISTOCYTES SLIGHT
--- NOTE | 2016-10-19 07:55 | PDOC PROGRESS REPORT ---
Subjective Progress Note for:: 10/19/16 Subjective:: Patient was admitted for the GI bleed and the surgery was admitted the patient and underwent from the endoscopy and currently doing well. Patient was on aspirin and Plavix and see her Dr. CAMEJO as outpatient spelled the CAD. Patient's denied any blood in the stools or any black stools Patient's denied any chest pain and denied any shortness of the breath Patient seen by surgery already and plan to discharge it and discuss with the surgeon about to provide the Medrol Dosepak and hold aspirin and Plavix Physical Exam Vital Signs: Temp Pulse Resp BP Pulse Ox 98.8 F 83 19 135/81 H 94 10/18/16 23:51 10/18/16 23:51 10/18/16 23:51 10/18/16 23:51 10/18/16 23:51 Intake & Output 10/18/16 10/19/16 10/20/16 06:59 06:59 06:59 Intake Total 1470 260 Balance 1470 260 Weight 80.6 kg General appearance: PRESENT: no acute distress, well-developed, well-nourished Head exam: PRESENT: atraumatic, normocephalic Eye exam: PRESENT: conjunctiva pink, EOMI, PERRLA. ABSENT: scleral icterus Ear exam: PRESENT: normal external ear exam Mouth exam: PRESENT: moist, tongue midline Neck exam: PRESENT: full ROM. ABSENT: carotid bruit, JVD, lymphadenopathy, thyromegaly Respiratory exam: PRESENT: clear to auscultation teofilo Cardiovascular exam: PRESENT: RRR. ABSENT: diastolic murmur, rubs, systolic murmur Pulses: PRESENT: normal dorsalis pedis pul, +2 pedal pulses bilateral Vascular exam: PRESENT: normal capillary refill GI/Abdominal exam: PRESENT: normal bowel sounds, soft. ABSENT: distended, guarding, mass, organolmegaly, rebound, tenderness Rectal exam: PRESENT: deferred Neurological exam: PRESENT: alert, awake, oriented to person, oriented to place , oriented to time, oriented to situation, CN II-XII grossly intact. ABSENT: motor sensory deficit Psychiatric exam: PRESENT: appropriate affect, normal mood. ABSENT: homicidal ideation, suicidal ideation Skin exam: PRESENT: dry, intact, warm. ABSENT: cyanosis, rash Results Laboratory Results: 10/19/16 05:40 10/19/16 05:40 WBC 6.7 RBC 3.40 L Hgb 9.7 L D Hct 27.1 L MCV 80 MCH 28.4 MCHC 35.6 RDW 18.9 H Plt Count 275 Seg Neutrophils % 87.4 H Lymphocytes % 10.4 L Monocytes % 1.8 L Eosinophils % 0.0 Basophils % 0.4 Absolute Neutrophils 5.9 Absolute Lymphocytes 0.7 Absolute Monocytes 0.1 Absolute Eosinophils 0.0 Absolute Basophils 0.0 Impressions: Chest CT 10/18/16 00:00 IMPRESSION: Emphysema. Minimal interstitial changes at the left base without a discrete opacity. Prominent right renal pelvis. Assessment & Plan - Diagnosis (1) Anemia, blood loss Is this a current diagnosis for this admission?: YesPlan: : Hemoglobin 9.7 and according to the so the patient's discharge home today and no need for further evaluations (2) Chronic obstructive pulmonary disease with (acute) exacerbation Is this a current diagnosis for this admission?: YesPlan: Currently stable with the patient on a Medrol Dosepak and continues the home medications (3) Coronary artery disease Qualifiers: Coronary Disease-Associated Artery/Lesion type: unspecified vessel or lesion type [place] vs. transplanted heart: [place] heart Associated angina: without angina Qualified Code(s): I25.10 - Atherosclerotic heart disease of [place] coronary artery without angina pectoris Is this a current diagnosis for this admission?: YesPlan: Currently hold aspirin and Plavix in the following the one week and follow with the cardiology and consider restart the aspirin the patient on no more bleeding issues (4) Rectal bleeding Is this a current diagnosis for this admission?: YesPlan: Currently stable (5) Status post hemorrhoidectomy Is this a current diagnosis for this admission?: Yes - Time Time Spent with patient: 15-24 minutes Medications reviewed and adjusted accordingly: Yes Anticipated discharge: Home Within: Other - Plan Summary Plan Summary: As per discussed with the surgeons to hold aspirin and Plavix and provide the Medrol Dosepak and discuss with the patient's about and following a 1 week in office
[2016-10-19 08:19] VITALS: BP 130/73
--- NOTE | 2016-10-19 09:44 | DISCHARGE SUMMARY E ---
Discharge Summary NAME: LESIA FREGOSO : 1955 AGE: 61Y ADMITTED: 10/18/2016 DISCHARGED: 10/19/2016 FINAL DIAGNOSIS: Lower gastrointestinal bleed post hemorrhoidectomy by Dr. Vivas 2 weeks ago. HOSPITAL COURSE: He was admitted on 10/18/2016 for lower GI bleed and low hemoglobin. He had a total of 4 units of packed red blood cells with his hemoglobin up to 9.7 this morning. He had an upper GI endoscopy by Dr. Young on 10/18/2016, which was negative for any bleeding lesions. He had a bowel movement and feels better this morning. He will be discharged to be followed up in the office by Dr. Vivas in the next week or two. DICTATING PHYSICIAN: MILTON CORNEJO M.D. [id number] PHY#: [id number] ID: [id number] JOB#: [id number] ACCT: [id number] cc:MILTON CORNEJO M.D. [facility],
--- NOTE | 2016-10-27 13:28 | DISCHARGE SUMMARY E ---
Discharge Summary NAME: LESIA FREGOSO : 1955 AGE: 61Y ADMITTED: 10/18/2016 DISCHARGED: 10/19/2016 ADDENDUM: DIET: Regular diet. ACTIVITY: As tolerated. DICTATING PHYSICIAN: MILTON CORNEJO M.D. [id number] PHY#: [id number] ID: [id number] JOB#: [id number] ACCT: [id number] cc:MILTON CORNEJO M.D., TIMOTHY M.D. >
== END 2016-10-19 08:47 | disposition home or self-care (01) | DRG 920 ==
LOC: ER 13:44 → EH 18:28 → UNDOADMIN 18:28 → EH 18:58 → INTOOBSV 18:58 → 5 21:00 → OBSVTOIN 10-18 17:25
PROVIDERS: ADMIT Surgery; ATTEND Surgery
PROC: 30233N1 Transfusion of Nonautologous Red Blood Cells into Peripheral Vein, Percutaneous Approach (ICD-10-PCS; 2016-10-17)
PROC: 3E0F73Z Introduction of Anti-inflammatory into Respiratory Tract, Via Natural or Artificial Opening (ICD-10-PCS; 2016-10-18)
PROC: 0DB68ZX Excision of Stomach, Via Natural or Artificial Opening Endoscopic, Diagnostic (ICD-10-PCS; principal; 2016-10-18 15:00)
DX: K91.840 Postprocedural hemorrhage of a digestive system organ or structure following a digestive system procedure (principal); J44.1 Chronic obstructive pulmonary disease with (acute) exacerbation; D62 Acute posthemorrhagic anemia; Y84.8 Other medical procedures as the cause of abnormal reaction of the patient, or of later complication, without mention of misadventure at the time of the procedure; I25.10 Atherosclerotic heart disease of native coronary artery without angina pectoris; I10 Essential (primary) hypertension; E78.5 Hyperlipidemia, unspecified; F12.90 Cannabis use, unspecified, uncomplicated; K29.50 Unspecified chronic gastritis without bleeding; K44.9 Diaphragmatic hernia without obstruction or gangrene; E86.0 Dehydration; E78.00 Pure hypercholesterolemia, unspecified; Z95.5 Presence of coronary angioplasty implant and graft; Z86.010 Personal history of colon polyps; Z87.891 Personal history of nicotine dependence; Z79.899 Other long term (current) drug therapy; Z79.01 Long term (current) use of anticoagulants; Z79.82 Long term (current) use of aspirin; Z79.02 Long term (current) use of antithrombotics/antiplatelets
CPT/HCPCS: 36415; 36430; 43239; 71250; 80048; 80053; 85025; 85610; 85730; 86850; 86900; 86901; 86920; 88305; 88342; 99291; G0378; J0171; J1610; J2250; J2310; J2405; J2930; J3010; J3480; J3490; J7620; P9016

== ENCOUNTER → 2017-02-23 | Outpatient (CLI) | payer MEDICAID ==
--- NOTE | 2017-02-23 11:34 | RADIOLOGY REPORT (SQ) ---
EXAM DESCRIPTION: SHOULDER LEFT 2 OR MORE VIEWS COMPLETED DATE/TIME: 02/23/2017 10:17 am REASON FOR STUDY: PAIN IN LEFT SHOULDER M25.512 PAIN IN LEFT SHOULDER COMPARISON: None. NUMBER OF VIEWS: Three views. TECHNIQUE: Internal rotation, external rotation, and Y view images acquired of the left shoulder. LIMITATIONS: None. FINDINGS: MINERALIZATION: Normal. BONES: No acute fracture or dislocation. No worrisome bone lesions. No significant osteophytes. GLENOHUMERAL JOINT: Mild degenerative narrowing inferior joint ACROMIOCLAVICULAR JOINT: No large osteophytes. SOFT TISSUES: No calcifications. VISUALIZED RIBS, SPINE, AND LUNG: No other significant finding. OTHER: No other significant finding. IMPRESSION: Mild degenerative narrowing inferior glenohumeral joint. TECHNICAL DOCUMENTATION: JOB ID: [id number] [employer]- All Rights Reserved
== END ==
LOC: OD 10:07
PROVIDERS: ATTEND Physician Assistant
DX: M25.512 Pain in left shoulder (principal); M19.012 Primary osteoarthritis, left shoulder

== ENCOUNTER → 2017-12-27 | Outpatient (CLI) | payer MEDICAID ==
--- NOTE | 2017-12-27 16:27 | RADIOLOGY REPORT (SQ) ---
EXAM DESCRIPTION: U/S SCROTUM W/O DOPPLER COMPLETED DATE/TIME: 12/27/2017 4:13 pm REASON FOR STUDY: RIGHT TESTICULAR PAIN N50.811 RIGHT TESTICULAR PAIN COMPARISON: None. TECHNIQUE: Static and realtime garcia scale imaging of the scrotum and testes. Selected color Doppler and spectral images recorded to document blood flow. LIMITATIONS: None. FINDINGS: RIGHT: TESTICLE: Normal size, 3.9 x 2.7 x 2.7 cm. Normal echotexture. Normal blood flow. No mass. EPIDIDYMIS: Enlarged. 2.7 x 2 x 1.4 cm. Increased blood flow. HYDROCELE OR VARICOCELE: Small hydrocele measures 2.4 cm. HERNIA OR EXTRA-TESTICULAR MASS: No. OTHER: No other significant finding. LEFT: TESTICLE: Normal size, 3.9 x 1.1 x 2.1 cm. Normal echotexture. Normal blood flow. No mass. EPIDIDYMIS: Normal. 1.2 x 2.9 x 1.2 cm. HYDROCELE OR VARICOCELE: No. HERNIA OR EXTRA-TESTICULAR MASS: No. OTHER: No other significant finding. IMPRESSION: Right epididymitis. TECHNICAL DOCUMENTATION: JOB ID: [id number] [employer]- All Rights Reserved Reading location - IP/workstation name: [email or web address]
== END ==
LOC: RAD 14:48
PROVIDERS: ATTEND Family Medicine
DX: N50.811 Right testicular pain (principal); N45.1 Epididymitis
CPT/HCPCS: 76870

== ENCOUNTER 2018-06-14 09:12 | Emergency (ER) | payer MEDICAID ==
--- NOTE | 2018-06-14 09:35 | ER Document Report ---
ED GI/ - General Chief Complaint: STD Exposure Stated Complaint: STD CHECK Time Seen by Provider: 06/14/18 09:21 Mode of Arrival: Ambulatory Information source: Patient Notes: 62-year-old male presents to ED for complaint of STD exposure. He states his partner has vaginal discharge odor and pelvic pain. He states he has no symptoms. He states that he did have unprotected sex about a week or so ago. TRAVEL OUTSIDE OF THE [place] IN LAST 30 DAYS: No - HPI Patient complains to provider of: Other - To the exposure Onset: Other - About a week or so Quality of pain: No pain Pain Level: Denies Sexual history: Active, STD exposure Associated symptoms: None Exacerbated by: Denies Relieved by: Denies Similar symptoms previously: Yes Recently seen / treated by doctor: No - Related Data Allergies/Adverse Reactions: No Known Allergies Allergy (Verified 06/14/18 09:14) Past Medical History - Social History Smoking Status: Never Smoker Cigarette use (# per day): No Chew tobacco use (# tins/day): No Smoking Education Provided: No Frequency of alcohol use: None Drug Abuse: Marijuana Lives with: Spouse/Significant other Family History: Reviewed & Not Pertinent Patient has suicidal ideation: No Patient has homicidal ideation: No - Past Medical History Cardiac Medical History: Reports: Hx Coronary Artery Disease - 2011 HEART STENTS , Hx Hypercholesterolemia, Hx Hypertension Pulmonary Medical History: Reports: Hx COPD EENT Medical History: Reports: None Neurological Medical History: Reports: None Endocrine Medical History: Reports: None Renal/ Medical History: Reports: None Malignancy Medical History: Reports None GI Medical History: Reports: None Musculoskeletal Medical History: Reports None Skin Medical History: Reports None Psychiatric Medical History: Reports: None Traumatic Medical History: Reports: None Infectious Medical History: Reports: None Past Surgical History: Reports: Hx Cardiac Catheterization - With stents, Hx Coronary Stent, Other - 3 compartment hemorrhoidectomy with removal of fibroepithelial polyp 11 day - Immunizations Immunizations up to date: Yes Hx Diphtheria, Pertussis, Tetanus Vaccination: Yes Review of Systems - Review of Systems Constitutional: No symptoms reported EENT: No symptoms reported Cardiovascular: No symptoms reported Respiratory: No symptoms reported Gastrointestinal: No symptoms reported Genitourinary: No symptoms reported Male Genitourinary: No symptoms reported Musculoskeletal: No symptoms reported Skin: No symptoms reported Hematologic/Lymphatic: No symptoms reported Neurological/Psychological: No symptoms reported -: Yes All other systems reviewed and negative Physical Exam - Vital signs Vitals: Temp Pulse Resp BP Pulse Ox 98.5 F 87 16 149/99 H 94 06/14/18 09:18 06/14/18 09:18 06/14/18 09:18 06/14/18 09:18 06/14/18 09:18 Interpretation: Normal - General General appearance: Appears well, Alert - HEENT Head: Normocephalic, Atraumatic Eyes: Normal Pupils: PERRL - Respiratory Respiratory status: No respiratory distress Chest status: Nontender Breath sounds: Normal Chest palpation: Normal - Cardiovascular Rhythm: Regular Heart sounds: Normal auscultation Murmur: No - Abdominal Inspection: Normal Distension: No distension Bowel sounds: Normal Tenderness: Nontender Organomegaly: No organomegaly - Back Back: Normal, Nontender - Extremities General upper extremity: Normal inspection, Nontender, Normal color, Normal ROM , Normal temperature General lower extremity: Normal inspection, Nontender, Normal color, Normal ROM , Normal temperature, Normal weight bearing. No: Maki's sign - Neurological Neuro grossly intact: Yes Cognition: Normal Orientation: AAOx4 [place] Coma Scale Eye Opening: Spontaneous [place] Coma Scale Verbal: Oriented Sudarshan Coma Scale Motor: Obeys Commands [place] Coma Scale Total: 15 Speech: Normal Motor strength normal: LUE, RUE, LLE, RLE Sensory: Normal - Psychological Associated symptoms: Normal affect, Normal mood - Skin Skin Temperature: Warm Skin Moisture: Dry Skin Color: Normal Course - Vital Signs Vital signs: Temp Pulse Resp BP Pulse Ox 98.5 F 87 16 149/99 H 94 06/14/18 09:18 06/14/18 09:18 06/14/18 09:18 06/14/18 09:18 06/14/18 09:18 - Laboratory Laboratory results interpreted by ne: 06/14/18 09:29 Ur Leukocyte Esterase TRACE H Discharge - Discharge Clinical Impression: Trichomonas infection, Urethritis Condition: Stable Disposition: HOME, SELF-CARE Additional Instructions: TRICHOMONAS INFECTION: Trichomoniasis is infection of the male genital tract with Trichomonas vaginalis. It can be asymptomatic or cause urethritis, or occasionally cystitis , epididymitis, or prostatitis. Diagnosis is by microscopic examination of vaginal or prostatic secretions or by urethral culture. Patients and sex partners are treated with metronidazole. T. vaginalis is a flagellated, sexually transmitted protozoan that more often infects women (about 20% of women of reproductive age) than men. Infection may be asymptomatic in either sex, but asymptomatic is the rule for men. In men, protozoa may persist for long periods in the tract without causing symptoms; thus, protozoa may be transmitted unwittingly to sex partners. Trichomoniasis may account for up to 5% of nongonococcal, nonchlamydial urethritis in men in some areas. Co-infection with gonorrhea and other sexually transmitted diseases (STDs) is common. In women, symptoms range from none to copious, yellow-green, frothy vaginal discharge with soreness of the vulva and perineum, dyspareunia, and dysuria. Asymptomatic infection may become symptomatic at any time as the vulva and perineum become inflamed and edema develops in the labia. The vaginal lepe and surface of the cervix may have punctate, red "strawberry" spots. Urethritis and possibly cystitis may also occur. Men are usually asymptomatic; however, sometimes urethritis results in a discharge that may be transient, frothy, or purulent or that causes dysuria and frequency, usually early in the morning. Often, urethritis is mild and causes only minimal urethral irritation and occasional moisture at the urethral meatus , under the foreskin, or both. Epididymitis and prostatitis are rare complications. Trichomoniasis is suspected in women with vaginitis, in men with urethritis , and in their sex partners. Suspicion is high if symptoms persist after patients have been evaluated and treated for other infections such as gonorrhea and chlamydial, mycoplasmal, and ureaplasmal infections. In women, diagnosis is based on clinical criteria and in-office testing. The saline wet mount is examined microscopically as soon as possible to detect trichomonads.In men, microscopy of urine is insensitive, although occasionally organisms are visible in a first-voided morning specimen or a centrifuged specimen. Cultures of urine and urethral swabs are more sensitive. As with diagnosis of any STD, patients with trichomoniasis should be tested to exclude other common STDs such as gonorrhea and chlamydial infection. Metronidazole or tinidazole 2 g po in a single dose cures up to 95% of women if sex partners are treated simultaneously. Effectiveness of single-dose regimens in men is not as clear, so treatment is typically with metronidazole or tinidazole 500 mg bid for 5 to 7 days. Sex partners should be screened and treated for trichomoniasis and other STDs. If poor adherence to follow-up is likely, treatment can be initiated in sex partners of patients with documented trichomoniasis without confirming the diagnosis in the partner. ANTIBIOTIC THERAPY: You have been given an antibiotic prescription. It's important that you take all the medication, unless instructed otherwise by your physician. Failure to complete the entire course can result in relapse of your condition. Common side effects of antibiotics include nausea, intestinal cramping, or diarrhea. Women may develop vaginal yeast infections, and babies can get yeast (thrush) in the mouth following the use of antibiotics. Contact your physician if you develop significant side effects from this medication. Allergy to this antibiotic can result in hives, wheezing, faintness, or itching. If symptoms of allergy occur, stop the medication and call the doctor. CEPHALOSPORINS: An antibiotic of the cephalosporin class has been prescribed. This type of antibiotic covers a wide variety of infections, including those of the skin, lungs, middle ear, and urinary tract. This antibiotic is somewhat similar to the penicillin family. In rare cases , a person who is allergic to penicillin will also be allergic to this medication. If you have had a severe allergic reaction to penicillin, and have not taken this antibiotic since that time, notify your doctor. Antibiotics which cover many germs ("broad spectrum" antibiotics) are more likely to cause diarrhea or "yeast" infections. Women prone to vaginal yeast problems may suffer an attack after taking this antibiotic. In infants, oral thrush (white spots "stuck" on the cheek) or yeast diaper rash may result. See your doctor if these problems occur. Call the doctor at once if you develop hives, itching, shortness of breath , or lightheadedness. AZITHROMYCIN: Azithromycin (Zithromax) is a broad spectrum antibiotic in the same class as erythromycin. It can treat a variety of bacterial infections, but is most frequently used for respiratory infections. Azithromycin is extremely long-lasting. It accumulates in body tissues and continues to kill bacteria for many days. In order to improve absorption, Azithromycin should be taken at least one hour before or two hours after a meal. It does not have the same strong tendency to upset the stomach as erythromycin and is usually very well tolerated. Patients who have had a rash or other true allergic reactions to erythromycin should not take this medication. Call if you develop gastrointestinal distress, severe diarrhea, rash, hives, itching, or shortness of breath. METRONIDAZOLE: Metronidazole (Flagyl) has been prescribed. This medication is used to kill a type of bacteria called anaerobes, and protozoan parasites such as trichomonas and Giardia. Flagyl often causes a metallic taste in the mouth and mild nausea. Do not use alcohol in any form with Flagyl (including alcohol in medication elixirs). Flagyl interacts with alcohol to cause flushing, palpitations, headache, stomach cramps, and vomiting. Do not use Flagyl if you are taking Antabuse (disulfiram). Call the doctor at once if you develop rash, shortness of breath, itching, or lightheadedness. Do not have any sex of any kind for the next 2 weeks protected or unprotected after that be very careful making sure that you do not reinfect each other. You will both be started on your treatment today please be sure to take all the medications as they are prescribed do not skip any doses and do not stop because you feel better please take all the medication so that you do not have those symptoms again. FOLLOW-UP CARE: If you have been referred to a physician for follow-up care, call the physician s office for an appointment as you were instructed or within the next two days. If you experience worsening or a significant change in your symptoms, notify the physician immediately or return to the Emergency Department at any time for re-evaluation. Please call back in 2 hours for the results of your gonorrhea and chlamydia you can call [phone] Prescriptions: Metronidazole [Flagyl 500 mg Tablet] 500 mg PO BID #28 tablet Forms: Elevated Blood Pressure Referrals: JUSTEN WHEELER MD [Primary Care Provider] - Follow up as needed
[2018-06-14 09:36] VITALS: BP 149/99
[2018-06-14 10:17] LABS: APPEARANCE,URINE CLEAR; BILIRUBIN,URINE NEGATIVE (NEGATIVE); COLOR,URINE YELLOW; GLUCOSE, URINE NEGATIVE (NEGATIVE); KETONES,URINE NEGATIVE (NEGATIVE); LEUKOCYTE ESTERASE,URINE TRACE (NEGATIVE); NITRITE,URINE NEGATIVE (NEGATIVE); PROTEIN,URINE NEGATIVE (NEGATIVE); URINE SPECIFIC GRAVITY 1.014; UROBILINOGEN,URINE NEGATIVE mg/dL (<2.0)
[2018-06-14 10:22] LABS: ADD MANUAL MICROSCOPIC YES
[2018-06-14] MEDS ORDERED: CEFTRIAXONE INJ 250 MG VIAL IM ONE (10:23)
[2018-06-14] MEDS ORDERED: AZITHROMYCIN 250 MG TABLET PO ONE (10:23)
[2018-06-14] MEDS ORDERED: LIDOCAINE 1% INJ-PF (10 MG/ML) 30 ML SDV INJ ONE (10:23)
[2018-06-14] MEDS ORDERED: METRONIDAZOLE 500 MG TABLET PO ONE (10:25)
[2018-06-14 10:26] LABS: TRICHOMONAS,URINE PRESENT; WBC,URINE 0-1 /HPF
[2018-06-14 11:10] LABS: CHLAM PCR NOT DETECTED (NOT DETECT); GON PCR NOT DETECTED (NOT DETECT)
== END 2018-06-14 11:00 | disposition home or self-care (01) ==
LOC: ER 09:12
DX: A59.03 Trichomonal cystitis and urethritis (principal); I10 Essential (primary) hypertension; I25.10 Atherosclerotic heart disease of native coronary artery without angina pectoris; J44.9 Chronic obstructive pulmonary disease, unspecified; Z95.5 Presence of coronary angioplasty implant and graft
CPT/HCPCS: 99283; 96372; 81001; 87491; 87591; Q0144; J3490 ×2; J0696

== ENCOUNTER → 2020-07-10 | Outpatient (CLI) | payer MEDICAID ==
--- NOTE | 2020-07-11 11:27 | RADIOLOGY REPORT (SQ) ---
EXAM DESCRIPTION: ARTERIAL LOWER EXTREM UNILAT IMAGES COMPLETED DATE/TIME: 07/10/2020 8:50 am REASON FOR STUDY: RLE PAIN M79.604 PAIN IN RIGHT LEG COMPARISON: None. TECHNIQUE: Dynamic and static garcia scale and color images acquired of the right lower extremity camacho sakshi. Additional selected spectral images recorded. LIMITATIONS: None. FINDINGS: FEMORAL ARTERIES:Multiphasic waveforms. Normal, no velocity elevation to suggest focal cass nosis. Normal color Doppler evaluation. No aneurysm. POPLITEAL ARTERY:Multiphasic waveforms. Normal, no velocity elevation to suggest focal stenosis. Norm al color Doppler evaluation. No aneurysm. PATENT TIBIOPERONEAL TRUNK AND 3 VESSEL RUNOFF: Yes, normal vessels. OTHER: Diffuse scattered plaque. IMPRESSION: No significant stenosis. TECHNICAL DOCUMENTATION: JOB ID: [id number] 2010 [employer]- All Rights Reserved Reading location - IP/workstation name: [email or web address]
== END ==
LOC: SP 07:44
PROVIDERS: ATTEND Physician Assistant
DX: M79.604 Pain in right leg (principal)
CPT/HCPCS: 93926